=== PATIENT | male | born 1990 | race Caucasian/White ===

== ENCOUNTER 2019-05-12 19:40 | Emergency (ER) | payer BC ==
--- NOTE | 2019-05-12 19:57 | Emergency Department Record ---
History of Present Illness - General Chief Complaint: Laceration(s) Stated Complaint: LACERATION ON LT HAND Time Seen by Provider: 05/12/19 19:46 Source: Patient, Family Mode of Arrival: Ambulatory Limitations: No limitations - History of Present Illness Initial Commments: 29 yo male presents with a left index finger injury. He injured it is a table saw. He is right handed. He has an injury to the distal nail. He has full ROM without limitation. Full extension. His tetanus is not up to date. -: Minutes(s) Place: Home Context: Accidental, Other (table saw) Associated Symptoms: None Treatments Prior to Arrival: Bandage - [place] Coma Scale Eye Response: (4) Open spontaneously Motor Response: (6) Obeys commands Verbal Response: (5) Oriented Marshal Total: 15 - Related Data Previous Rx's Medication Instructions Recorded Cephalexin [Keflex] 500 mg PO TID #21 cap 05/12/19 Allergies Allergy/AdvReac Type Severity Reaction Status Date / Time No Known Drug Allergies Allergy Verified 05/12/19 19:57 Review of Systems Constitutional: Denies: Chills, Fever, Malaise, Weakness Eyes: Denies: Eye discharge ENT: Denies: Congestion, Throat pain Respiratory: Denies: Cough Cardiovascular: Denies: Chest pain, Syncope Endocrine: Denies: Fatigue Gastrointestinal: Denies: Abdominal pain, Diarrhea, Vomiting Genitourinary: Denies: Dysuria, Frequency, Hematuria Musculoskeletal: Reports: As per HPI, Arthralgia Skin: Reports: As per HPI, Other. Denies: Bruising, Change in color Neurological: Denies: Headache, Numbness, Tingling, Tremors, Vertigo, Weakness Psychiatric: Denies: Anxiety Hematological/Lymphatic: Denies: Easy bleeding, Easy bruising Physical Exam - General General Appearance: Alert, Oriented x3, Cooperative, No acute distress Limitations: No limitations - Head Head exam: Atraumatic, Normal inspection - Eye Eye exam: Normal appearance. negative: Conjunctival injection - ENT ENT exam: Normal exam, Mucous membranes moist Ear exam: Normal external inspection Nasal Exam: Normal inspection Mouth exam: Normal external inspection - Neck Neck exam: Normal inspection - Cardiovascular Peripheral Pulses: 2+: Radial (L) - Rectal Rectal exam: Deferred - exam: Deferred - Extremities Extremities exam: Full ROM, Normal capillary refill. negative: Normal inspection Image of Finger Tip: 1 - laceration width of table saw kerf - Neurological Neurological exam: Alert, Normal gait, Oriented X3, Other (He is able to extend the finger fully with full strength, no FB, No visible bone). negative: Motor sensory deficit - Psychiatric Psychiatric exam: Normal affect, Normal mood - Skin Type of lesion: Laceration Course Vital Signs 05/12/19 19:46 Temperature 98 F Pulse Rate [ 83 Pulse Ox Probe] Respiratory 20 Rate Blood Pressure 104/80 [Left Arm] Pulse Ox 96 - Reevaluation(s) Reevaluation #1: 05/12/19 20:07 Digital Block: Betadine Prep Lidocaine with 70/30 Bupivicaine (Plain) 4ml 400 ml irrigation with Saf-Clens and NS Awaiting XR. 05/12/19 21:12 The case was discussed with DR Pradhan He recommended follow up no intervention in the ED after cleaning and dressing He will see the patient in the office tomorrow or Thursday Tetanus was updated Antibiotics given in the ED and Rx. 05/12/19 22:05 Disposition Disposition: Discharge Clinical Impression: Nailbed laceration, finger Finger laceration Qualifiers: Encounter type: initial encounter Finger: index finger Damage to nail status: unspecified Foreign body presence: unspecified Laterality: left Qualified Code(s): S61.211A - Laceration without foreign body of left index finger without damage to nail, initial encounter Disposition: Home, Self-Care Condition: (1) Good Instructions: Laceration (ED) Additional Instructions: Call Dr Pradhan's office first thing in the morning Keep the injury dry and clean in the bandage Prescriptions: Cephalexin [Keflex] 500 mg PO TID #21 cap Referrals: ALYCIA PRADHAN M.D. [MEDICAL DOCTOR] - Forms: Patient Portal Access Time of Disposition: 21:12 Quality - Quality Measures Quality Measures: N/A - Blood Pressure Screening Does Patient Have Any of the Following: No Blood Pressure Classification: Hypertensive Reading Systolic Measurement: 142 Diastolic Measurement: 92 Screening for High Blood Pressure: < Pre-Hypertensive BP, F/U Documented > [G2757] Pre-Hypertensive Follow-up Interventions: Referral to alternative/primary care provider.
[2019-05-12] MEDS: Diph,Pert(Acell),Tet Vac 0.5 ML SYR IM ONE (19:59)
[2019-05-12] MEDS: CEPHALEXIN 500 MG CAPSULE PO STA ×2 (20:02→21:27)
[2019-05-12] MEDS: HYDROCODONE/APAP 5/325MG TABLET PO ONE (21:27)
--- NOTE | 2019-05-13 20:28 | RADIOLOGY REPORT ---
EXAM: FINGER(S), LEFT HISTORY: TABLE SAW INJURY. TECHNIQUE: Three views. COMPARISON: None. FINDINGS: Fracture of the distal phalanx of the left index finger. Fine bone detail is obscured by an overlying bandage. No radiopaque foreign body. Bones and joints otherwise unremarkable. IMPRESSION: FRACTURE DISTAL PHALANX OF THE LEFT INDEX FINGER. JOB NUMBER: [id number] MTDD
== END 2019-05-12 21:36 | disposition home or self-care (01) ==
LOC: ER 19:40
DX: S61.311A Laceration without foreign body of left index finger with damage to nail, initial encounter (principal); W31.2XXA Contact with powered woodworking and forming machines, initial encounter; Y92.009 Unspecified place in unspecified non-institutional (private) residence as the place of occurrence of the external cause
CPT/HCPCS: 64450; 73140; 90715; 96372; 99284